=== PATIENT | female | born 1965 | race Asian ===

== ENCOUNTER 2017-07-30 05:55 | Day surgery (SDC) | payer OTHER ==
[~2017-07-30] VITALS: Ht 152.4 cm; Wt 54.4 kg
[2017-07-30 06:59] LABS: HEMOGLOBIN 13.9 g/dL (12.0-16.0); MEAN CORPUSCULAR HEMOGLOBIN 31 pg (27-31); MEAN CORPUSCULAR HGB CONC 34 g/dL (33-37); MEAN CORPUSCULAR VOLUME 93 fL (80-94); PLATELET COUNT (AUTO) 220 K/uL (140-450); RED BLOOD CELL COUNT(AUTO) 4.43 MIL/uL (4.20-5.40); RED CELL DISTRIBUTION WIDTH 12.6 % (11.6-13.7); WHITE BLOOD COUNT (AUTO) 5.8 K/uL (4.8-10.8)
[2017-07-30] MEDS ORDERED: LIDOCAINE 2% 1000 MG/50 ML VIAL INJ ONE (07:28)
[2017-07-30 08:07] LABS: EOSINOPHILS % (MANUAL) 5 % (0-4); LYMPHOCYTES % (MANUAL) 37 % (20-46); MONOCYTES % (MANUAL) 9 % (5-12)
== END 2017-07-30 08:50 | disposition home or self-care (01) ==
LOC: MDS 05:55 → MMU 06:02 → MDS 08:50
PROVIDERS: ATTEND Internal Medicine Gastroenterology
DX: B19.20 Unspecified viral hepatitis C without hepatic coma (principal); B19.10 Unspecified viral hepatitis B without hepatic coma
CPT/HCPCS: 36415; 47000; 76942; 85025; 85730; 88307; 88313; J2001; Q0092